=== PATIENT | female | born 1940 | race Two or more races ===

== ENCOUNTER 2017-09-26 11:30 | Inpatient (IN) | payer OTHER ==
[~2017-09-26] VITALS: Ht 162.6 cm; Wt 64.9 kg
[2017-09-26] MEDS ORDERED: ATORVASTATIN CA20 MG PO (15:00)
[2017-09-26] MEDS ORDERED: ARICEPT10 MG PO (15:00)
[2017-09-26] MEDS ORDERED: DILTIAZEM (15:01)
[2017-09-26] MEDS ORDERED: SINGULAIR10 MG PO (15:02)
[2017-09-26] MEDS ORDERED: SYNTH (15:02)
[2017-09-26] MEDS ORDERED: ASPIR 8181 MG PO (15:03)
[2017-09-26] MEDS ORDERED: [UNRECOGNIZED DRUG - OTHER] (15:04)
[2017-09-26] MEDS ORDERED: ADVAIR HFA 115/12 GM IH (15:04)
[2017-09-26] MEDS ORDERED: IRON18 MG PO (15:07)
[2017-09-26] MEDS ORDERED: [UNRECOGNIZED DRUG - OTHER] PO (15:07)
[2017-09-26] MEDS ORDERED: CRITIC-AID CLEAR4 GM PO (15:08)
== END 2017-10-05 10:50 | disposition home or self-care (01) | DRG 330 ==
LOC: SURG 10-02 05:39 → O/R 10-02 05:39 → SURG 10-02 10:47 → RECOVERY 10-02 11:30 → SURG 10-05 10:50
PROVIDERS: Colon & Rectal Surgery
PROC: 07TC4ZZ Resection of Pelvis Lymphatic, Percutaneous Endoscopic Approach (ICD-10-PCS; 2017-10-02)
PROC: 0WQF4ZZ Repair Abdominal Wall, Percutaneous Endoscopic Approach (ICD-10-PCS; 2017-10-02)
PROC: 0DTF4ZZ Resection of Right Large Intestine, Percutaneous Endoscopic Approach (ICD-10-PCS; principal; 2017-10-02 13:00)
DX: C18.0 Malignant neoplasm of cecum (principal); C18.2 Malignant neoplasm of ascending colon; C18.3 Malignant neoplasm of hepatic flexure; K43.6 Other and unspecified ventral hernia with obstruction, without gangrene; Z86.010 Personal history of colon polyps

== ENCOUNTER → 2018-06-21 | Day surgery (SDC) | payer OTHER ==
[~2018-06-21] MED LIST: ADVAIR HFA 115/12 GM IH; ARICEPT10 MG PO; ASPIR 8181 MG PO; ATORVASTATIN CA20 MG PO; CRITIC-AID CLEAR4 GM PO; DILTIAZEM; IRON18 MG PO; SINGULAIR10 MG PO; SYNTH; [UNRECOGNIZED DRUG - OTHER]; [UNRECOGNIZED DRUG - OTHER] PO
== END | disposition home or self-care (01) ==
LOC: ADM 06-18 12:30 → AMB-ENDOS 06:30 → CIR.AMB 12:30
DX: D12.8 Benign neoplasm of rectum (principal); D13.1 Benign neoplasm of stomach

== ENCOUNTER 2021-03-25 07:20 | Day surgery (SDC) | payer OTHER | END 2021-03-25 14:40 | disposition home or self-care (01) | LOC: AMB-ENDOS 07:20 | PROVIDERS: ATTEND Colon & Rectal Surgery | DX: C18.7 Malignant neoplasm of sigmoid colon (principal); K64.1 Second degree hemorrhoids; Z20.822 Contact with and (suspected) exposure to COVID-19 ==

== ENCOUNTER 2021-07-01 08:45 | Inpatient (IN) | payer OTHER ==
[~2021-07-01] VITALS: Ht 160 cm; Wt 72.6 kg
[~2021-07-01 08:45] MED LIST changes: -SYNTH; +SYNTHROID
[2021-07-01] MEDS ORDERED: COZAAR100 MG PO (10:41)
[2021-07-05] MEDS ORDERED: ALLERGY RELIEF10 M1 (09:48)
[2021-07-05] MEDS ORDERED: LEVOTHYROXINE50 MCG (09:49)
[2021-07-05] MEDS ORDERED: B-122500 MCG (09:49)
[2021-07-05] MEDS ORDERED: MEMANTINE HCL10 MG (09:49)
[2021-07-05] MEDS ORDERED: DILTIAZEM HCL30 MG (09:49)
[2021-07-05] MEDS ORDERED: TRAZODONE HCL100 MG (09:49)
[2021-07-05] MEDS ORDERED: SERTRALINE HCL50 MG (09:49)
[2021-07-05] MEDS ORDERED: VITAMIN D350 MC3 (09:50)
== END 2021-07-18 20:00 | disposition expired | DRG 329 ==
LOC: SURH 07-04 10:57 → ICU-2 07-10 20:22 → SEC-K 07-10 20:43 → ICU 07-10 20:48
PROVIDERS: ADMIT Colon & Rectal Surgery; ATTEND Colon & Rectal Surgery
PROC: 0DTN4ZZ Resection of Sigmoid Colon, Percutaneous Endoscopic Approach (ICD-10-PCS; principal; 2021-07-04)
PROC: 0DBP4ZZ Excision of Rectum, Percutaneous Endoscopic Approach (ICD-10-PCS; 2021-07-04)
PROC: 07BC4ZZ Excision of Pelvis Lymphatic, Percutaneous Endoscopic Approach (ICD-10-PCS; 2021-07-04)
PROC: 30233N1 Transfusion of Nonautologous Red Blood Cells into Peripheral Vein, Percutaneous Approach (ICD-10-PCS; 2021-07-05)
PROC: 3E0F7SF Introduction of Other Gas into Respiratory Tract, Via Natural or Artificial Opening (ICD-10-PCS; 2021-07-05)
PROC: 3E0F7GC Introduction of Other Therapeutic Substance into Respiratory Tract, Via Natural or Artificial Opening (ICD-10-PCS; 2021-07-07)
PROC: B246ZZZ Ultrasonography of Right and Left Heart (ICD-10-PCS; 2021-07-07)
PROC: 5A09557 Assistance with Respiratory Ventilation, Greater than 96 Consecutive Hours, Continuous Positive Airway Pressure (ICD-10-PCS; 2021-07-08)
PROC: 4A12X4Z Monitoring of Cardiac Electrical Activity, External Approach (ICD-10-PCS; 2021-07-08)
PROC: 02HV33Z Insertion of Infusion Device into Superior Vena Cava, Percutaneous Approach (ICD-10-PCS; 2021-07-08)
PROC: 3E0436Z Introduction of Nutritional Substance into Central Vein, Percutaneous Approach (ICD-10-PCS; 2021-07-08)
PROC: 8E0ZXY6 Isolation (ICD-10-PCS; 2021-07-10)
PROC: BW24YZZ Computerized Tomography (CT Scan) of Chest and Abdomen using Other Contrast (ICD-10-PCS; 2021-07-12)
DX: C18.7 Malignant neoplasm of sigmoid colon (principal); J95.821 Acute postprocedural respiratory failure; J69.0 Pneumonitis due to inhalation of food and vomit; R65.20 Severe sepsis without septic shock; D62 Acute posthemorrhagic anemia; N17.9 Acute kidney failure, unspecified; N39.0 Urinary tract infection, site not specified; Z16.12 Extended spectrum beta lactamase (ESBL) resistance; N17.8 Other acute kidney failure; K92.1 Melena; B96.20 Unspecified Escherichia coli [E. coli] as the cause of diseases classified elsewhere; I48.91 Unspecified atrial fibrillation; Z66 Do not resuscitate; B96.29 Other Escherichia coli [E. coli] as the cause of diseases classified elsewhere; J43.8 Other emphysema; I11.9 Hypertensive heart disease without heart failure; N73.6 Female pelvic peritoneal adhesions (postinfective); D46.4 Refractory anemia, unspecified; R59.0 Localized enlarged lymph nodes; E63.8 Other specified nutritional deficiencies; E88.09 Other disorders of plasma-protein metabolism, not elsewhere classified; E03.8 Other specified hypothyroidism; E11.622 Type 2 diabetes mellitus with other skin ulcer; L89.152 Pressure ulcer of sacral region, stage 2; G30.8 Other Alzheimer's disease; F01.50 Vascular dementia, unspecified severity, without behavioral disturbance, psychotic disturbance, mood disturbance, and anxiety; Z74.01 Bed confinement status; Z87.891 Personal history of nicotine dependence; Z79.4 Long term (current) use of insulin
CPT/HCPCS: 71275